=== PATIENT | female | born 1970 | race Caucasian/White ===

== ENCOUNTER 2018-08-26 05:57 | Emergency (ER) | payer OTHER ==
[~2018-08-26] VITALS: Ht 162.6 cm; Wt 74.8 kg
[2018-08-26] MEDS ORDERED: ACID REDUCER150 MG PO (06:14)
[2018-08-26] MEDS ORDERED: PYRIDIUM200 MG PO (06:57)
[2018-08-26] MEDS ORDERED: NORCO 5-325 TA1 EACH PO (06:57)
[2018-08-26] MEDS ORDERED: KEFLEX500 MG PO (06:57)
== END 2018-08-26 07:22 | disposition home or self-care (01) ==
LOC: ED 05:57
DX: R30.0 Dysuria (principal); R35.0 Frequency of micturition; R10.9 Unspecified abdominal pain; Z90.710 Acquired absence of both cervix and uterus
CPT/HCPCS: 81001; 87088; 99284

== ENCOUNTER 2019-05-03 19:25 | Emergency (ER) | payer OTHER ==
[~2019-05-03] VITALS: Ht 162.6 cm; Wt 74.8 kg
[~2019-05-03 19:25] MED LIST: ACID REDUCER150 MG PO; KEFLEX500 MG PO; NORCO 5-325 TA1 EACH PO; PYRIDIUM200 MG PO
[2019-05-03] MEDS ORDERED: ZOCOR40 MG PO (19:43)
[2019-05-03] MEDS ORDERED: NORCO 5-325 TA1 EACH PO (20:23)
[2019-05-03] MEDS ORDERED: CRUTCH1 EACH MISC (20:24)
== END 2019-05-03 20:42 | disposition home or self-care (01) ==
LOC: ED 19:25
DX: S93.402A Sprain of unspecified ligament of left ankle, initial encounter (principal); X50.9XXA Other and unspecified overexertion or strenuous movements or postures, initial encounter; K21.9 Gastro-esophageal reflux disease without esophagitis; Z79.899 Other long term (current) drug therapy
CPT/HCPCS: 73610; 99283-25

== ENCOUNTER 2024-03-19 06:48 | Day surgery (SDC) | payer BC ==
[2024-03-16 13:27] VITALS: BP 111/64
[~2024-03-19] VITALS: Ht 162.6 cm; Wt 86.4 kg
[~2024-03-19 06:48] MED LIST changes: +CRUTCH1 EACH MISC; +MIDAZOLAM HCL 5 MG/5 ML VIAL IV PRN; +ZOCOR40 MG PO; +fentaNYL citrate 100 MCG/2 ML VIAL IV PRN
[2024-03-19 07:00] VITALS: BP 132/57
[2024-03-19] MEDS ORDERED: LIDOCAINE HCL 1% 5 ML SDV INJ ONE (07:00)
[2024-03-19] MEDS ORDERED: IBLOOD GLUCOSE TEST STRIP 1 EA TEST VI PRN (07:00)
[2024-03-19] MEDS ORDERED: LACTATED RINGER'S 1,000 ML IV SCH (07:00)
--- NOTE | 2024-03-19 07:20 | NUR ---
PT NOT AVAILABLE FOR VISIT. PROVIDED PRAYER.
[2024-03-19] MEDS ORDERED: LIDOCAINE HCL 2% 5 ML SDV ONE (07:55)
[2024-03-19] MEDS ORDERED: MIDAZOLAM HCL 2 MG/2 ML VIAL ONE (07:55)
[2024-03-19] MEDS ORDERED: propofoL 200 MG/20 ML VIAL ONE (07:56)
--- NOTE | 2024-03-19 08:57 | NUR ---
03/19/24 0857 Kelly Morley 0834-PT ARRIVES TO PACU VIA STRETCHER, RESTING ON LT SIDE, PT ALERT BUT DROWSY. VSS ON 6L VIA MASK, RR EVEN AND UNALBORED. PT DENIES PAIN OR NAUSEA, ENCOURAGED TO PASS GAS. 0840- AT BEDSIDE DISCUSSING PROCEDURE RESULTS AND PLAN OF CARE W/ PT, ALL QUESTIONS ANSWERED. PT TITRATED TO RA, VSS. 0845-PT SITTING UP IN BED SIPPING ON WATER, PT DENIES PAIN OR NAUSEA. VSS ON RA.
[2024-03-19 09:02] VITALS: BP 112/69
--- NOTE | 2024-03-19 09:11 | OR ---
[facility] [address], [place] [address] Signed DATE OF OPERATION: 03/19/2024 SURGEON: Lars Redmond MD PREOPERATIVE DIAGNOSIS: Maternal grandfather with colon cancer in his 70s. POSTOPERATIVE DIAGNOSES: 1. 4 mm polyp, proximal right colon. 2. Minimal left-sided diverticulosis. 3. Minimal to moderate internal and external hemorrhoids. PROCEDURE: Colonoscopy with hot biopsy. ESTIMATED BLOOD LOSS: None. INDICATIONS: Lacey is a 54-year-old female, asked to see me for her initial colonoscopy. Her maternal grandfather had colon cancer in his 70s. Lacey has no lower GI complaints. In the office, I gave her a pamphlet on colonoscopy. She understands the nature of the test. There is risk including, but not limited to gas bloating, crampy abdominal pain, bleeding, perforation requiring surgery and missed diagnosis. We also reviewed the written instructions for the bowel prep line by line. She also told me that she is very difficult to wake up after surgeries. Her blood pressure was so low after her hysterectomy that she stayed two days in the hospital. She also has a very full round face consistent with her obstructive sleep apnea. Consequently, we asked for monitored anesthesia care with propofol infusion. In fact, she needed some Versed in our preop area just to get her back into the endoscopy suite. She did quite well with the propofol infusion. She understands an adult person has to take her home afterwards. She had expressed understanding and wished to proceed. DESCRIPTION OF PROCEDURE: Lacey was taken into our endoscopy suite and placed in the left lateral decubitus position. She was given monitored anesthesia care with propofol infusion per our nurse pheresis specialist. A digital rectal exam was performed. She has minimal to moderate circumferential external hemorrhoids. She had good sphincter tone. There were no masses. The adult colonoscope was then inserted and advanced under direct visualization of the camera without difficulty. Her prep was quite good. We could easily see the Electronically Signed By: LARS REDMOND MD 03/19/24 0911 PATIENT NAME: LACEY BURNS OPERATIVE REPORT DATE OF : 72 REPORT #: [id number] PHYSICIAN: LARS REDMOND MD PCP: GOOD MA MD REPORT IS CONFIDENTIAL AND NOT TO BE RELEASED WITHOUT AUTHORIZATION [facility] [address], [place] [address] Signed appendiceal orifice and the ileocecal valve. The scope was then slowly withdrawn. She had a tiny 4 mm polyp in the proximal right colon. It was easily removed with the help of hot biopsy forceps. She did have some diverticula in the left and sigmoid colon. They were moderate in size, few in number and scattered about. The rectum itself was unremarkable. Upon retroflexion of the scope, she has minimal to moderate internal hemorrhoid columns as well. After this, the gas was suctioned out and the colonoscope removed. Lacey tolerated the procedure quite well. RECOMMENDATIONS: Lacey will follow up in my office in 7 to 14 days to review her results. She will likely need colonoscopy every five years due to her family history. She will need monitored anesthesia care as well. Lars Redmond MD ALB/MODL /[id number] cc: MD Lars Moon MD Copies: GOOD MA MD, ANDREW L MD ~ Electronically Signed By: LARS REDMOND MD 03/19/24 0911 PATIENT NAME: LACEY BURNS OPERATIVE REPORT DATE OF : 72 REPORT #: [id number] PHYSICIAN: LARS REDMOND MD PCP: GOOD MA MD REPORT IS CONFIDENTIAL AND NOT TO BE RELEASED WITHOUT AUTHORIZATION
--- NOTE | 2024-03-20 14:59 | PATH ---
[facility] [address] [place], [place] [address] Signed SPECIMEN(S): A PROXIMAL ASCENDING COLON POLYP SPECIMEN SOURCE: A. PROXIMAL ASCENDING COLON POLYP CLINICAL HISTORY: Screening, family history of colon cancer FINAL PATHOLOGIC DIAGNOSIS: Colon, proximal ascending, polypectomy: - Tubular adenoma BRP MICROSCOPIC EXAMINATION: Histologic sections of all submitted blocks are examined by light microscopy. These findings, together with the gross examination, support the pathologic diagnosis. GROSS DESCRIPTION: The specimen, labeled and designated "Kike, proximal ascending colon polyp," is received in formalin and consists of one curry soft tissue fragment, 0.3 cm. Entirely submitted in (A1). VB (under the direct supervision of a pathologist) The Gross Description was prepared using a voice recognition system. The report was reviewed for accuracy; however, sound-alike word errors, addition and/or deletions may occur. If there is any question about this report, please contact Client Services. ADDITIONAL NOTES: Immunohistochemical and/or in situ hybridization studies if performed in this case included appropriate positive controls that reacted as expected. This test was developed and its performance characteristics determined by [facility]. It has not been cleared or approved by the U.S. Food and Drug Administration. The FDA has determined that such clearance or approval is not necessary. This test is used for clinical purposes. It should not be regarded as investigational or for research. [facility] is certified under the Clinical Laboratory Improvement Amendments of 1988 (CLIA) as qualified to perform high complexity clinical laboratory testing. PATIENT NAME: TAYE BURNS PATHOLOGY DATE OF : 72 REPORT #: [id number] PHYSICIAN: ATNONIO DOSHI PCP: GOOD MA MD REPORT IS CONFIDENTIAL AND NOT TO BE RELEASED WITHOUT AUTHORIZATION [facility] [address] [place], [place] [address] Signed PERFORMING LABORATORY: Technical component [place] [address] (CLIA# [id number]). Professional interpretation was performed by [facility] [place] [address] (CLIA#: [id number]). Diagnostician: Romero Saunders MD Pathologist Electronically Signed 03/20/2024 Copies: ~ PATIENT NAME: TAYE BURNS PATHOLOGY DATE OF : 72 REPORT #: [id number] PHYSICIAN: ANTONIO DOSHI PCP: GOOD MA MD REPORT IS CONFIDENTIAL AND NOT TO BE RELEASED WITHOUT AUTHORIZATION
== END 2024-03-19 09:10 | disposition home or self-care (01) ==
LOC: DS 06:48
PROVIDERS: ATTEND Colon & Rectal Surgery
PROC: 0DBK8ZZ Excision of Ascending Colon, Via Natural or Artificial Opening Endoscopic (ICD-10-PCS; principal; 2024-03-19 08:10)
DX: Z12.11 Encounter for screening for malignant neoplasm of colon (principal); D12.2 Benign neoplasm of ascending colon; K57.30 Diverticulosis of large intestine without perforation or abscess without bleeding; K64.4 Residual hemorrhoidal skin tags; K64.8 Other hemorrhoids; K21.9 Gastro-esophageal reflux disease without esophagitis; E78.5 Hyperlipidemia, unspecified; G47.33 Obstructive sleep apnea (adult) (pediatric); G43.909 Migraine, unspecified, not intractable, without status migrainosus; Z79.899 Other long term (current) drug therapy; Z90.710 Acquired absence of both cervix and uterus; Z80.0 Family history of malignant neoplasm of digestive organs
CPT/HCPCS: 00811; J2003; J2250; J2704; J7121